=== PATIENT | female | born 1960 | race African-American/Black ===

== ENCOUNTER 2019-01-17 12:47 | Emergency (ER) | payer OTHER ==
[~2019-01-17] VITALS: Ht 165.1 cm; Wt 74.8 kg
--- NOTE | 2019-01-17 13:00 | NUR ---
ED Nurse Note: Patient walked into ED c/o bilateral lower leg skin rash/ red lesions for 4 days. patient report that she may have bitten by a spider. patient reports pain 4/10. patient is alert awake x4 ambulatory steady gait, breathing unlabored and even. mother at bedside. .
[2019-01-17] MEDS ORDERED: Cephalexin 500mg cap ORAL ONE (13:15)
--- NOTE | 2019-01-17 13:15 | Emergency Room Report ---
History of Present Illness General Chief Complaint: Skin Rash/Abscess Present Illness HPI 58-year-old female with history of hypertension currently controlled here complaining of 4 days of pruritic and painful rash that started both of her ankles after walking outside and now spreading to below her knees. Patient is rating the pain 3 out of 10 without tingling and numbness sensation. Denies fever and chills, shortness of breath, palpitation, nausea vomiting, abdominal pain diarrhea. Denies having the same rash. Has not taken medication for symptom relief. Denies sore throat, headache, photophobia, neck stiffness. The rash has a cellulitic presentation in both ankles with macular distribution below the knee. Does not resemble meningococcal rash. Allergies: Coded Allergies: MORPHINE (Verified Allergy, Unknown, 01/17/19) SULFA (SULFONAMIDE ANTIBIOTICS) (Verified Allergy, Unknown, 01/17/19) Patient History Past Medical History: see triage record Past Surgical History: unable to obtain Pertinent Family History: none Last Menstrual Period: N/A Now: No : 1 Para: 0 Immunizations: UTD Reviewed Nursing Documentation: PMH: Agreed; PSxH: Agreed Review of Systems All Other Systems: negative except mentioned in HPI Physical Exam Vital Signs Date Time Temp Pulse Resp B/P (MAP) Pulse Ox O2 Delivery O2 Flow Rate FiO2 01/17/19 12:56 98.4 115 15 124/86 (99) 95 Room Air Sp02 EP Interpretation: reviewed, normal General Appearance: no apparent distress, alert, GCS 15, non-toxic Head: normocephalic, atraumatic Eyes: bilateral eye normal inspection, bilateral eye PERRL ENT: hearing grossly normal, normal pharynx, no angioedema, normal voice Neck: full range of motion, supple, no meningismus, supple/symm/no masses Respiratory: chest non-tender, lungs clear, normal breath sounds, no respiratory distress, no retraction, no wheezing, speaking full sentences Cardiovascular #1: normal inspection, regular rate, rhythm, no edema, no murmur Gastrointestinal: normal inspection, non tender, soft, no mass, no bruit, no guarding Genitourinary: no CVA tenderness Musculoskeletal: back normal, gait/station normal, normal range of motion, non- tender Neurologic: alert, oriented x3, responsive, motor strength/tone normal, sensory intact, speech normal Psychiatric: judgement/insight normal, memory normal, mood/affect normal, no suicidal/homicidal ideation Skin: other - Cellulitic rash on both ankles Lymphatic: no adenopathy Medical Decision Making PA Attestation Diagnosis and treatment plans were reviewed and discussed with my supervising physician Dr. Worthington Diagnostic Impression: Primary Impression: Cellulitis of lower leg Additional Impression: Insect bite ER Course 58-year-old female with history of hypertension currently controlled here complaining of 4 days of pruritic and painful rash that started both of her ankles after walking outside and now spreading to below her knees. Patient is rating the pain 3 out of 10 without tingling and numbness sensation. Denies fever and chills, shortness of breath, palpitation, nausea vomiting, abdominal pain diarrhea. Denies having the same rash. Has not taken medication for symptom relief. Denies sore throat, headache, photophobia, neck stiffness. The rash has a cellulitic presentation in both ankles with macular distribution below the knee. Does not resemble meningococcal rash. Ddx considered but are not limited to : Cellulitis, DVT, superficial infection, abscess, meningococcemia Vital signs: are WNL, pt. is afebrile H&PE are most consistent with: Cellulitis of lower leg secondary to insect bite ORDERS: Keflex, prednisone, hydrocortisone cream ED INTERVENTIONS: None required at this time. DISCHARGE: At this time pt. is stable for d/c to home. Will provide printed patient care instructions, and any necessary prescriptions. Care plan and follow up instructions have been discussed with the patient prior to discharge. Take medication as directed follow-up with primary care provider worsening symptoms return to the emergency room Last Vital Signs Date Time Temp Pulse Resp B/P (MAP) Pulse Ox O2 Delivery O2 Flow Rate FiO2 01/17/19 12:56 98.4 115 15 124/86 (99) 95 Room Air Disposition: HOME, SELF-CARE Condition: Stable Scripts Hydrocortisone/Aloe Vera 1%* (HYDROCORTISONE-ALOE 1% CREAM*) Y Cr 1 APPLIC TOPIC Q6H PRN for Itching, #30 GM Prov: Joey Ge 01/17/19 Prednisone (Prednisone) 20 Mg Tablet 20 MG PO BID for 5 Days, #10 TAB Prov: Joey Ge 01/17/19 Cephalexin* (KEFLEX*) 500 Mg Capsule 500 MG ORAL EVERY 6 HOURS for 7 Days, #28 CAP Prov: Joey Ge 01/17/19 Patient Instructions: Cellulitis, [id number], Insect Bite, Ptfr-[id number] Additional Instructions: Take medication as directed follow-up with your primary care provider worsening symptoms, fever and chills return to the emergency room Joey Ge Jan 17, 2019 13:15
[2019-01-17] MEDS ORDERED: CEPHALEXIN500 MG ORAL (13:17)
[2019-01-17] MEDS ORDERED: PREDNISONE20 M1 PO (13:17)
[2019-01-17] MEDS ORDERED: HYDROCORTISONE-30 GM TOPIC (13:17)
[2019-01-17 13:24] VITALS: BP 121/72
--- NOTE | 2019-01-17 13:35 | NUR ---
ER DISCHARGE NOTE: Patient is cleared to be discharged per KARI SEN pt is aox4, on room air, with stable vital signs. pt was given dc and prescription instructions, pt was able to verbalize understanding, pt id band removed without complications. pt is able to ambulate with steady gait. pt took all belongings.
== END 2019-01-17 13:35 | disposition home or self-care (01) ==
LOC: EMR 13:00
DX: S90.562A Insect bite (nonvenomous), left ankle, initial encounter (principal); S90.561A Insect bite (nonvenomous), right ankle, initial encounter; L03.116 Cellulitis of left lower limb; L03.115 Cellulitis of right lower limb; Z88.2 Allergy status to sulfonamides; Z88.6 Allergy status to analgesic agent; W57.XXXA Bitten or stung by nonvenomous insect and other nonvenomous arthropods, initial encounter; Y92.9 Unspecified place or not applicable
CPT/HCPCS: 99282

== ENCOUNTER 2020-04-14 15:37 | Emergency (ER) | payer OTHER ==
[~2020-04-14] VITALS: Ht 165.1 cm; Wt 70.3 kg
[~2020-04-14 15:37] MED LIST: CEPHALEXIN500 MG ORAL; HYDROCORTISONE-30 GM TOPIC; PREDNISONE20 M1 PO
[2020-04-14] MEDS ORDERED: HYDROCHLOROTHIA25 MG ORAL (16:03)
[2020-04-14] MEDS ORDERED: LISINOPRIL20 MG ORAL (16:03)
[2020-04-14] MEDS ORDERED: ADALAT20 MG ORAL (16:03)
--- NOTE | 2020-04-14 16:10 | NUR ---
ED Nurse Note: Patient walked in to ER from home s/p syncope episode today, no injury, been fainting 3 times over past 2 weeks. Per patient she feels so weak, AAO x4, VSS at this time.
[2020-04-14 16:12] VITALS: BP 142/105
--- NOTE | 2020-04-14 16:14 | NUR ---
ED Nurse Note: IV line was established on right forearm 20 ga, blood and urine collected sent to lab
--- NOTE | 2020-04-14 16:28 | Diagnostic Imaging Report ---
Indication: Syncope, dizziness Technique: Continuous helical CT scanning of the head was performed utilizing automated exposure control without intravenous contrast material. Axial and coronal reconstructions were obtained. Comparison: None CT dose: Total DLP 992.1 mGycm; CTDI vol 53.4 mGy Findings: There is no acute intracranial hemorrhage, mass effect or shift of midline structures. Chronic appearing infarcts noted in the bilateral basal ganglia with extension into the patten radiata on the left. The ventricles, cisterns and sulci are mildly prominent consistent with mild atrophy. Periventricular hypoattenuation is seen, a nonspecific finding. Visualized mastoid air cells and paranasal sinuses are unremarkable. No focal lesions of the bony calvarium or soft tissues of the scalp are seen. IMPRESSION: No evidence of acute intracranial hemorrhage, mass effect or midline shift. Chronic-appearing infarcts in the bilateral basal ganglia. MRI may be obtained for more sensitive evaluation, particularly if there is concern for acute ischemia. Mild atrophy and chronic ischemic microvascular changes. The CT scanner at [facility] is accredited by the [employer] and the scans are performed using protocols designed to limit radiation exposure to as low as reasonably achievable to attain images of sufficient resolution adequate for diagnostic evaluation.
--- NOTE | 2020-04-14 16:43 | Diagnostic Imaging Report ---
Indication: Shortness of breath Technique: XRAY Chest 1v Comparison: None Findings: Heart is enlarged. Mediastinal contours are sharp. There is no focal airspace consolidation, pneumothorax or pleural effusion. Osseous structures demonstrate no acute abnormality. Impression: No radiographic evidence of acute cardiopulmonary disease.
[2020-04-14 17:16] LABS: BASOPHILS % (AUTO) 0.9 % (0.0-2.0); EOSINOPHILS % (AUTO) 0.1 % (0.0-3.0); HEMATOCRIT 45.4 % (37.0-47.0); HEMOGLOBIN 15.2 G/DL (12.0-16.0); LYMPHOCYTES % (AUTO) 17.8 % (20.0-45.0); MEAN CORPUSCULAR VOLUME 88 FL (80-99); MONOCYTES % (AUTO) 5.8 % (1.0-10.0); NEUTROPHILS % (AUTO) 75.4 % (45.0-75.0); PLATELET COUNT 363 K/UL (150-450); RED BLOOD COUNT 5.14 M/UL (4.20-5.40); RED CELL DISTRIBUTION WIDTH 14.2 % (11.6-14.8); WHITE BLOOD COUNT 11.8 K/UL (4.8-10.8)
[2020-04-14] MEDS ORDERED: Omnipaque 350 100ml vial INJ PRN (17:45)
[2020-04-14 18:18] LABS: ALBUMIN 3.8 G/DL (3.4-5.0); ALBUMIN/GLOBULIN RATIO 0.9 (1.0-2.7); BILIRUBIN,TOTAL 0.3 MG/DL (0.2-1.0); CREATININE 1.4 MG/DL (0.55-1.30)
[2020-04-14 18:21] LABS: POTASSIUM 2.7 MMOL/L (3.5-5.1)
--- NOTE | 2020-04-14 18:49 | NUR ---
ED Nurse Note: patient was taken to CT via [facility]
--- NOTE | 2020-04-14 19:07 | Diagnostic Imaging Report ---
EXAM: CT Angiography Chest With Intravenous Contrast CLINICAL HISTORY: PE TECHNIQUE: Axial computed tomographic angiography images of the chest with intravenous contrast. CTDI is 32.6 mGy and DLP is 183.4 mGy-cm. One or more of the following dose reduction techniques were used: automated exposure control, adjustment of the mA and/or kV according to patient size, use of iterative reconstruction technique. MIP reconstructed images were created and reviewed. Coronal and sagittal reformatted images were created and reviewed. Axial reformatted images were created and reviewed. COMPARISON: No relevant prior studies available. FINDINGS: Pulmonary arteries: No pulmonary embolism. Aorta: No acute findings. No thoracic aortic aneurysm. Lungs: Unremarkable. No mass. No consolidation. Pleural space: Unremarkable. No significant effusion. No pneumothorax. Heart: Unremarkable. No cardiomegaly. No significant pericardial effusion. No evidence of RV dysfunction. Bones/joints: Osteopenia. No acute fracture. No dislocation. Soft tissues: Unremarkable. Lymph nodes: Unremarkable. No enlarged lymph nodes. IMPRESSION: 1. No pulmonary embolism. 2. No acute abnormality definitively identified to account for patient presentation.
--- NOTE | 2020-04-14 19:32 | Emergency Room Report ---
History of Present Illness General Chief Complaint: Syncope Source: Patient (Joey Ge) Present Illness HPI 59-year-old female with history of hypertension currently on Norvasc and lisinopril here complaining of near syncope episodes and chest pain. Patient reports that earlier last week felt faint and hit her head. Also later in the day last week of pain and fell on her back. Patient was going to her chiropractor starting line to get him this morning that felt pain again coupled with stabbing chest pain without radiation and someone caught her from falling. Patient also has history of tobacco smoke and marijuana use. Denies all other histories. Denies any cardiac history. Is neurovascularly intact. Denies any generalized or unilateral weakness. Head appears to be atraumatic. Is currently not taking any blood thinners other than aspirin. (Joey Ge) Allergies: Coded Allergies: MORPHINE (Verified Allergy, Unknown, 01/17/19) SULFA (SULFONAMIDE ANTIBIOTICS) (Verified Allergy, Unknown, 01/17/19) COVID-19 Screening Contact w/high risk pt: No Experienced COVID-19 symptoms?: No COVID-19 Testing performed ADJUNCT PROFESSOR OF ENGLISH: No (Joey Ge) Patient History Past Surgical History: none Pertinent Family History: none Now: No Immunizations: UTD Reviewed Nursing Documentation: PMH: Agreed; PSxH: Agreed (Joey Ge) Nursing Documentation-PMH Past Medical History: No History, Except For Hx Hypertension: Yes (Joey Ge) Review of Systems All Other Systems: negative except mentioned in HPI (Joey Ge) Physical Exam Vital Signs Date Time Temp Pulse Resp B/P (MAP) Pulse Ox O2 Delivery O2 Flow Rate FiO2 04/14/20 15:42 97.2 84 17 142/105 (117) 95 Room Air Sp02 EP Interpretation: reviewed, normal General Appearance: no apparent distress, alert, GCS 15, non-toxic Head: normocephalic, atraumatic Eyes: bilateral eye normal inspection, bilateral eye PERRL ENT: hearing grossly normal, normal pharynx, no angioedema, normal voice Neck: full range of motion, supple/symm/no masses Respiratory: chest non-tender, lungs clear, normal breath sounds, speaking full sentences Cardiovascular #1: regular rate, rhythm, no edema Cardiovascular #2: 2+ carotid (R), 2+ carotid (L), 2+ radial (R), 2+ radial (L), 2+ dorsalis pedis (R), 2+ dorsalis pedis (L) Gastrointestinal: normal bowel sounds, non tender, soft, non-distended, no guarding, no rebound Rectal: deferred Genitourinary: no CVA tenderness Musculoskeletal: back normal Neurologic: alert, motor strength/tone normal, oriented x3, sensory intact, responsive, speech normal Psychiatric: judgement/insight normal, memory normal, mood/affect normal, no suicidal/homicidal ideation Skin: no rash Lymphatic: no adenopathy (Joey Ge) Medical Decision Making PA Attestation ALL Diagnosis and treatment plan reviewed and discussed with my supervising physician Dr. Rothman (Joey Ge) Diagnostic Impression: Primary Impression: Elevated troponin Additional Impression: Syncope ER Course 59-year-old female with history of hypertension currently on Norvasc and lisinopril here complaining of near syncope episodes and chest pain. Patient reports that earlier last week felt faint and hit her head. Also later in the day last week of pain and fell on her back. Patient was going to her chiropractor starting line to get him this morning that felt pain again coupled with stabbing chest pain without radiation and someone caught her from falling. Patient also has history of tobacco smoke and marijuana use. Denies all other histories. Denies any cardiac history. Is neurovascularly intact. Denies any generalized or unilateral weakness. Head appears to be atraumatic. Is currently not taking any blood thinners other than aspirin. Ddx considered but are not limited to: [place], Angina, COPD, GERD, CVA, TIA Vital signs: are WNL, pt. is afebrile H&PE are most consistent with elevated troponin ORDERS: EKG, Chest XR, cardiac labs, head CT ED INTERVENTIONS: None required at this time. Patient was admitted with diagnosis of elevated troponin to Dr. Mcqueen under supervision of : Lorna pt stable at time of admission (Joey Ge) ER Course I personally evaluated the above patient and agree with assessment and plan. Patient admitted to telemetry under the care of Dr. Mcqueen. EKG: NSR, no ischemia, intervals WNL. No ectopy. Normal axis. Rate 80bpm Rhythm strip: patient monitored for arrhythmias - no malignant dysrhythmias, runs of PVCs, nor pauses noted (Juanito Rothman M.D.) EKG Diagnostic Results Rate: normal Rhythm: NSR ST Segments: no acute changes Other Impression No acute ST changes ASA given to the pt in ED: No (Joey Ge) Chest X-Ray Diagnostic Results Chest X-Ray Diagnostic Results : Chest X-Ray Ordered: Yes # of Views/Limited/Complete: 1 View Indication: Chest Pain EP Interpretation: Yes PA Xray: Interpretation reviewed, by supervising MD, and agrees with elda palacios. Interpretation: no consolidation, no effusion, no pneumothorax, no acute cardiopulmonary disease Impression: No acute disease Electronically Signed by: Joey Foote PA-C) CT/MRI/US Diagnostic Results CT/MRI/US Diagnostic Results : Imaging Test Ordered: CTA chest Impression COMPARISON: No relevant prior studies available. FINDINGS: Pulmonary arteries: No pulmonary embolism. Aorta: No acute findings. No thoracic aortic aneurysm. Lungs: Unremarkable. No mass. No consolidation. Pleural space: Unremarkable. No significant effusion. No pneumothorax. Heart: Unremarkable. No cardiomegaly. No significant pericardial effusion. No evidence of RV dysfunction. Bones/joints: Osteopenia. No acute fracture. No dislocation. Soft tissues: Unremarkable. Lymph nodes: Unremarkable. No enlarged lymph nodes. IMPRESSION: 1. No pulmonary embolism. 2. No acute abnormality definitively identified to account for patient presentation. (Joey Ge) Last Vital Signs Date Time Temp Pulse Resp B/P (MAP) Pulse Ox O2 Delivery O2 Flow Rate FiO2 04/14/20 16:12 97.2 17 142/105 95 Room Air 04/14/20 15:42 84 (Joey Ge) Disposition: ADMITTED INPATIENT Condition: Serious Referrals: NOT CHOSEN IPA/,REFERRING (PCP) Joey Ge Apr 14, 2020 19:32 Juanito Rothman M.D. Apr 14, 2020 19:43
[2020-04-14 20:12] VITALS: BP 138/98
--- NOTE | 2020-04-14 20:12 | NUR ---
AMA: SEE AMA FORM.
== END 2020-04-14 20:12 | disposition other institution (70) ==
LOC: EMR 16:00
DX: R77.8 Other specified abnormalities of plasma proteins (principal); R55 Syncope and collapse; Z91.81 History of falling; I10 Essential (primary) hypertension; Z88.5 Allergy status to narcotic agent; Z88.2 Allergy status to sulfonamides
CPT/HCPCS: 36415; 70450; 71045; 71275; 80053; 80307; 83880; 84484; 85025; 85379; 85610; 85730; 99285; Q9967; J8499